=== PATIENT | male | born 1995 | race Caucasian/White ===

== ENCOUNTER 2019-02-13 10:33 | Emergency (ER) | payer SELFPAY ==
[2019-02-13] MEDS ORDERED: Ketorolac 60 MG/2 ML SDV IM ONE (10:48)
--- NOTE | 2019-02-13 10:48 | EDM.PDOC ---
ED HPI GENERAL MEDICAL PROBLEM - General Chief Complaint: Headache Stated Complaint: HEADACHE Time Seen by Provider: 02/13/19 10:38 Source of Information: Reports: Patient History Limitations: Reports: No Limitations - History of Present Illness INITIAL COMMENTS - FREE TEXT/NARRATIVE: HISTORY AND PHYSICAL: History of present illness: Patient is a 23-year-old male who presents to the emergency room today with complaints of headache. Describes the pain as a sharp pressure behind the left eye and going to the left posterior scalp. Pain is similar with each migraine headache. Does have mild light sensitivity, no noise sensitivity, nausea/ vomiting. Patient reports he has had intermittent headaches since he was a young boy but it has progressively gotten worse over the past 4 months. He has seen his primary care provider who has recently placed him on Topamax. He states initially this medication was working well now he feels that he is having breakthrough migraines which is not alleviated with this medication. He reports that he has a head CT scheduled next week, although would like to have his head CT done today. He denies any injury, trauma or falls. Patient denies any fever, chills, change in vision, syncope or near syncope. Denies any chest pain, back pain, shortness of breath or cough. Denies any GI or symptoms. Patient has been eating and drinking appropriately. Review of systems: As per history of present illness and below otherwise all systems reviewed and negative. Past medical history: As per history of present illness and as reviewed below otherwise noncontributory. Surgical history: As per history of present illness and as reviewed below otherwise noncontributory. Social history: See social history for further information Family history: As per history of present illness and as reviewed below otherwise noncontributory. Physical exam: General: Well-developed and well-nourished 23-year-old male. Alert and oriented. Nontoxic appearing and in no acute distress. HEENT: Atraumatic, normocephalic, pupils equal and reactive bilaterally, negative for conjunctival pallor or scleral icterus, mucous membranes moist, TMs normal bilaterally, throat clear, neck supple, nontender, trachea midline. No drooling or trismus noted. No meningeal signs. No hot potato voice noted. Lungs: Clear to auscultation, breath sounds equal bilaterally, chest nontender. Heart: S1S2, regular rate and rhythm without overt murmur Abdomen: Soft, nondistended, nontender. Skin: Intact, warm, dry. No lesions or rashes noted. Extremities: Atraumatic, moves all extremities per self without difficulty or deficits, negative for cords or calf pain. Neurovascular unremarkable. Neuro: Awake, alert, oriented. Cranial nerves II through XII unremarkable. Cerebellum unremarkable. Motor and sensory unremarkable throughout. Exam nonfocal. Notes: Head CT negative. VSS. Improvement with the Toradol IM. He does R Gregg have established relationship with primary care provider for continued management of his migraine headaches. I encouraged him to follow-up for medication adjustment as needed. Supportive care measures were reviewed and discussed. Voices understanding and is agreeable to plan of care. Denies any further questions or concerns at this time. Diagnostics: Head CT Therapeutics: Toradol IM Prescription: None Impression: Migraine Headache Plan: 1. Continue to take Topamax as directed. 2. Follow up with your primary care provider as we discussed. Return to the ED as needed as discussed. Definitive disposition and diagnosis as appropriate pending reevaluation and review of above. Duration: Chronic left eye Pain Score (Numeric/FACES): 5 - Related Data Allergies Allergy/AdvReac Type Severity Reaction Status Date / Time No Known Allergies Allergy Verified 02/13/19 10:41 Home Meds: Home Meds Topiramate [Topamax] 50 mg PO BID 02/13/19 [History] ED ROS GENERAL - Review of Systems Review Of Systems: ROS reveals no pertinent complaints other than HPI. - Physical Exam Exam: See Below (See dictation) Course - Vital Signs Last Recorded V/S: Last Vital Signs Temp 97.3 F 02/13/19 10:41 Pulse 82 02/13/19 10:41 Resp 18 02/13/19 10:41 BP 137/57 L 02/13/19 10:41 Pulse Ox 98 02/13/19 10:41 - Orders/Labs/Meds Meds: Medications Discontinued Medications Generic Name Dose Route Start Last Admin Trade Name Freq PRN Reason Stop Dose Admin Ketorolac Tromethamine 60 mg 02/13/19 10:48 02/13/19 11:03 Toradol IM 02/13/19 10:49 60 mg ONETIME ONE Administration Departure - Departure Time of Disposition: 11:55 Disposition: Home, Self-Care 01 Clinical Impression: Migraine - Discharge Information Instructions: Migraine Headache, [id number] Referrals: PCP,None [Primary Care Provider] - Forms: ED Department Discharge Additional Instructions: The following information is given to patients seen in the emergency department who are being discharged to home. This information is to outline your options for follow-up care. We provide all patients seen in our emergency department with a follow-up referral. The need for follow-up, as well as the timing and circumstances, are variable depending upon the specifics of your emergency department visit. If you don't have a primary care physician on staff, we will provide you with a referral. We always advise you to contact your personal physician following an emergency department visit to inform them of the circumstance of the visit and for follow-up with them and/or the need for any referrals to a consulting specialist. The emergency department will also refer you to a specialist when appropriate. This referral assures that you have the opportunity for follow-up care with a specialist. All of these measure are taken in an effort to provide you with optimal care, which includes your follow-up. Under all circumstances we always encourage you to contact your private physician who remains a resource for coordinating your care. When calling for follow-up care, please make the office aware that this follow-up is from your recent emergency room visit. If for any reason you are refused follow-up, please contact the [facility] Emergency Department at and asked to speak to the emergency department charge nurse. [facility] [address] [place] [id number] [facility] [address] [place] [id number] 1. Continue to take Topamax as directed. 2. Follow up with your primary care provider as we discussed. Return to the ED as needed as discussed.
--- NOTE | 2019-02-13 11:54 | CT ---
INDICATION: PAIN, LEFT SIDED HEADACHE WITH NAUSEA. HX OF MIGRAINES. TECHNIQUE: CT Head without contrast. COMPARISON: None. FINDINGS: CSF spaces: Within normal limits for age. Brain parenchyma: The rico-white differentiation is normal. No sign of mass, hemorrhage, or midline shift. Skull base and calvarium: The visualized paranasal sinuses and mastoid air cells are clear. The visualized orbits are grossly unremarkable. No skull fractures. IMPRESSION: Unremarkable noncontrast head CT. Please note that all CT scans at this facility use dose modulation, iterative reconstruction, and/or weight-based dosing when appropriate to reduce radiation dose to as low as reasonably achievable. Dictated by: Denny Campos MD @ 02/13/2019 11:54:05 (Electronically Signed)
== END 2019-02-13 12:08 | disposition home or self-care (01) ==
LOC: MW.ED 10:33
DX: G43.909 Migraine, unspecified, not intractable, without status migrainosus (principal); Z79.899 Other long term (current) drug therapy
CPT/HCPCS: 70450; 96372; 99283; J1885

== ENCOUNTER 2023-03-28 11:32 | Emergency (ER) | payer SELFPAY | END 2023-03-28 13:15 | disposition home or self-care (01) | LOC: MW.ED 11:32 | DX: S01.21XA Laceration without foreign body of nose, initial encounter (principal); W45.8XXA Other foreign body or object entering through skin, initial encounter | CPT/HCPCS: 99282; 99283 ==

== ENCOUNTER 2024-09-08 07:15 | Emergency (ER) | payer SELFPAY ==
[2024-09-08 08:30] LABS: BASOPHILS ABSOLUTE AUTO 0.02 K/uL (0.00-0.20); BASOPHILS PERCENT AUTO 0.3 % (0.0-1.0); EOSINOPHILS ABSOLUTE AUTO 0.26 K/uL (0.00-0.45); EOSINOPHILS PERCENT AUTO 3.7 % (0.0-6.0); HEMATOCRIT 44.8 % (42.0-52.0); HEMOGLOBIN 15.7 g/dL (14.0-18.0); IMMATURE GRAN ABSOLUTE AUTO 0.02 K/uL (0.00-0.05); IMMATURE GRAN PERCENT AUTO 0.3 % (0.0-0.4); LYMPHOCYTES ABSOLUTE AUTO 1.33 K/uL (1.00-4.80); LYMPHOCYTES PERCENT AUTO 19.2 % (24.0-44.0); MEAN CORPUSCULAR HEMOGLOBIN 30.4 pg (28.0-32.0); MEAN CORPUSCULAR VOLUME 86.7 fL (83.0-99.0); MEAN PLATELET VOLUME 10.1 fL (9.4-12.4); MONOCYTES ABSOLUTE AUTO 0.49 K/uL (0.00-0.80); MONOCYTES PERCENT AUTO 7.1 % (0.0-8.0); NEUTROPHILS ABSOLUTE AUTO 4.82 K/uL (1.80-7.70); NEUTROPHILS PERCENT AUTO 69.4 % (41.0-71.0); PLATELET COUNT,PLT 161 K/uL (150-400); RED BLOOD CELL COUNT 5.17 M/uL (4.52-5.90); WHITE BLOOD CELL COUNT,WBC 6.94 K/uL (3.9-11.3)
[2024-09-08 08:50] LABS: A/G RATIO 1.3 (0.9-1.6); ALANINE AMINOTRANSFERASE,ALT 23 IU/L (14-63); ALBUMIN 4.1 g/dL (3.4-5.0); ALKALINE PHOSPHATASE 50 U/L (46-116); ASPARTATE AMNIOTRANSFERASE,AST 19 IU/L (15-37); BILIRUBIN TOTAL 0.5 mg/dL (0.2-1.0); BLOOD UREA NITROGEN,BUN 10 mg/dL (7.0-18.0); CALCIUM 8.9 mg/dL (8.5-10.1); CARBON DIOXIDE,CO2 23.9 mmol/L (21.0-32.0); CHLORIDE,CL 106 mmol/L (98-107); CREATININE 0.8 mg/dL (0.8-1.3); EST CRCL DRUG DOSING (CG) 135.49 mL/min; GLUCOSE RANDOM 96 mg/dL (74-106); POTASSIUM,K 3.8 mmol/L (3.5-5.1); PROTEIN TOTAL,TP 7.2 g/dL (6.4-8.2); SODIUM,NA 139 mmol/L (136-148)
[2024-09-08 08:53] LABS: ESTIMATED GFR 123 mL/min (>60)
== END 2024-09-08 09:11 | disposition home or self-care (01) ==
LOC: MW.ED 07:15
DX: R07.89 Other chest pain (principal)
CPT/HCPCS: 36415; 71046; 71046-26; 80053; 83735; 84484; 85025; 93005; 93010; 99283; 99285